=== PATIENT | female | born 1990 | race Caucasian/White ===

== ENCOUNTER → 2016-08-25 | Outpatient (CLI) | payer MEDICAID ==
--- NOTE | 2016-08-25 19:13 | US ---
Sonogram of the Abdomen, Complete Clinical Indications: Abdominal and right lower quadrant pain. Comparisons: None relevant. Findings: The liver is unremarkable. The gallbladder is decompressed. The pancreas is visualized a nd normal. The gallbladder wall measures 1.2 mm. The common bile duct measures 3.2 mm. The aorta tapers normally from 16 to 12 mm. The right kidney is unremarkable. It measures 5.5 x 3.9 x 10.9 cm, with a 1.1-cm cortex. The spleen is unremarkable and measures 4.9 x 9.2 x 8.9 cm. The left kidney measures 5.7 x 4.3 x 10.3 cm, with a 1.2-cm cortex. The cecum is visualized in the right lower quadrant. There is trace free fluid. The appendix was no t definitely visualized. Impressions 1. Equivocal for appendicitis. 2. No other sonographic evidence for the patient's pain. Critical results relayed by Dr. Mccabe on August 25, 2016 at 1847 hours.
== END ==
LOC: FIMAGING 17:47
PROVIDERS: ATTEND Family Medicine
DX: R10.31 Right lower quadrant pain (principal); R11.0 Nausea

== ENCOUNTER → 2016-12-25 | Outpatient (CLI) | payer MEDICAID | LOC: FIMAGING 10:35 | PROVIDERS: ATTEND Family Medicine | DX: R10.9 Unspecified abdominal pain (principal); R17 Unspecified jaundice ==